=== PATIENT | male | born 1975 | race Caucasian/White ===

== ENCOUNTER 2021-03-11 23:34 | Emergency (ER) | payer BC, SELFPAY ==
[2021-03-12] MEDS ORDERED: Penicillin V Potassium 250 MG TAB PO SCH (03:30)
== END 2021-03-12 03:50 | disposition home or self-care (01) ==
LOC: ERS 23:34
DX: K04.7 Periapical abscess without sinus (principal); I10 Essential (primary) hypertension
CPT/HCPCS: 99282